=== PATIENT | male | born 1985 | race Caucasian/White ===

== ENCOUNTER 2021-07-27 09:12 | Emergency (ER) | payer OTHER ==
[2021-07-27] MEDS ORDERED: Lidocaine 1% PF 5 ML VIAL ONE (09:28)
[2021-07-27] MEDS ORDERED: Ciprofloxacin 500 MG TAB ONE (09:49)
[2021-07-27] MEDS ORDERED: Boostrix 0.5 ML (Tdap) VIAL ONE (09:49)
== END 2021-07-27 10:09 | disposition home or self-care (01) ==
LOC: BURERS 09:12
DX: S61.245A Puncture wound with foreign body of left ring finger without damage to nail, initial encounter (principal); W45.8XXA Other foreign body or object entering through skin, initial encounter
CPT/HCPCS: 90471; 90715